=== PATIENT | female | born 1975 | race African-American/Black ===

== ENCOUNTER 2019-04-28 21:07 | Outpatient (CLI) | payer SELFPAY ==
[2019-04-28 21:59] VITALS: BP 117/64
[2019-04-28] MEDS ORDERED: BUTORPHANOL 2 MG/1 ML INJ IV PRN (22:12)
[2019-04-28] MEDS ORDERED: LACTATED RINGERS 2,000 ML IV ONE (22:12)
[2019-04-28 23:54] LABS: Hematocrit 30.9 % (30.3-42.9); Hemoglobin 10.4 gm/dl (10.1-14.3); Mean Corpuscular HGB Conc 34 % (30-34); Mean Corpuscular Volume 88 fl (79-97); Platelet Count 222 K/mm3 (140-440); Red Blood Count 3.51 M/mm3 (3.65-5.03); Red Cell Distribution Width 13.6 % (13.2-15.2)
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
[2019-04-29] LABS: Bacteria,Urine 2+ /HPF (Negative); Bilirubin,Urine NEG (Negative); Blood,Urine SM (Negative); Color,Urine Straw (Yellow); Mucus,Urine FEW /HPF; Protein,Urine <15 mg/dL mg/dL (Negative); Urobilinogen,Urine < 2.0 mg/dL (<2.0)
[2019-04-29 00:05] LABS: INR 0.94 (0.87-1.13)
[2019-04-29 00:06] LABS: Partial Thromboplastin Time 24.1 Sec. (24.2-36.6)
== END 2019-04-29 01:15 | disposition home or self-care (01) ==
LOC: TRG 21:07
PROVIDERS: ATTEND Obstetrics & Gynecology
DX: O47.02 False labor before 37 completed weeks of gestation, second trimester (principal); O26.892 Other specified pregnancy related conditions, second trimester; R10.9 Unspecified abdominal pain; Z3A.27 27 weeks gestation of pregnancy; V89.0XXA Person injured in unspecified motor-vehicle accident, nontraffic, initial encounter; Y93.89 Activity, other specified; Y92.89 Other specified places as the place of occurrence of the external cause; Y99.8 Other external cause status
CPT/HCPCS: 36415; 76805; 76819; 81001; 85027; 85610; 85730; 96360; 96361; J7120